=== PATIENT | female | born 1990 | race Caucasian/White ===

== ENCOUNTER 2016-09-11 15:12 | Emergency (ER) | payer MEDICAID ==
[~2016-09-11] VITALS: Ht 162.6 cm; Wt 68.0 kg
[~2016-09-11 15:12] MED LIST: CLON1TAB PO; FLUO20CA19 PO
[2016-09-11] MEDS ORDERED: EPINEPHRINE 1 MG/ML, 1ML ONE (17:50)
[2016-09-11] MEDS ORDERED: DIPHENHYDRAMINE 25 MG CAPSULE ONE (17:50)
[2016-09-11 20:14] VITALS: BP 90/45
== END 2016-09-11 20:16 | disposition home or self-care (01) ==
LOC: ED 19:11
DX: F10.120 Alcohol abuse with intoxication, uncomplicated (principal); F32.9 Major depressive disorder, single episode, unspecified
CPT/HCPCS: 99283

== ENCOUNTER 2016-10-22 07:51 | Inpatient (IN) | payer MEDICAID, OTHER ==
[~2016-10-22] VITALS: Ht 162.6 cm; Wt 62.8 kg
[2016-10-22 09:18] LABS: ASPARTATE AMINO TRANSFERASE 15 U/L (15-37); BLOOD UREA NITROGEN 7 mg/dL (7-18)
[2016-10-22 09:23] LABS: ACETAMINOPHEN 20 mcg/mL (10-30)
[2016-10-22 09:26] LABS: DAU SCREEN DISCLAIMER
[2016-10-22 10:13] LABS: PATH.CAST-FLAG NOT PRESENT; SPERM-FLAG NOT PRESENT; SRC-FLAG NOT PRESENT; XTAL-FLAG NOT PRESENT; YLC-FLAG NOT PRESENT
[2016-10-22] MEDS ORDERED: DEXTROSE 5% IV ONE ×3 (10:30→17:00)
[2016-10-22] MEDS ORDERED: ACETYLCYSTEINE IV ONE ×3 (10:30→17:00)
[2016-10-22] MEDS ORDERED: SODIUM CHLORIDE FLUSH 10ML SYR IVF PRN (11:30)
[2016-10-22] MEDS ORDERED: ACETYLCYSTEINE 3,200 MG in DEXTROSE 5% 500 ML IV ONE (13:00)
[2016-10-22] MEDS ORDERED: SODIUM CHLORIDE 0.9% 1,000 ML IV SCH (13:42)
[2016-10-22] MEDS ORDERED: ONDANSETRON 2MG/ML, 2ML IVPush PRN (14:00)
[2016-10-22] MEDS ORDERED: DOCUSATE 100 MG CAPSULE PO PRN (14:00)
[2016-10-22] MEDS ORDERED: ONDANSETRON ODT 4 MG PO PRN (14:00)
[2016-10-22 14:12] LABS: ACETAMINOPHEN < 2 mcg/mL (10-30); ASPARTATE AMINO TRANSFERASE 15 U/L (15-37)
[2016-10-22 17:40] VITALS: BP 117/80
[2016-10-22 19:53] VITALS: BP 121/77
[2016-10-22 20:48] VITALS: BP 117/80
[2016-10-22] MEDS: ENOXAPARIN 40 MG/0.4 ML SQ SCH (23:02)
[2016-10-23 00:49] VITALS: BP 102/66
[2016-10-23 05:38] LABS: ASPARTATE AMINO TRANSFERASE 11 U/L (15-37); BLOOD UREA NITROGEN 9 mg/dL (7-18)
[2016-10-23 05:40] LABS: ACETAMINOPHEN < 2 mcg/mL (10-30)
[2016-10-23 06:54] VITALS: BP 103/67
[2016-10-23 13:31] VITALS: BP 106/67
[2016-10-23] MEDS: ENOXAPARIN 40 MG/0.4 ML SQ SCH (14:00)
[2016-10-23] MEDS: SERTRALINE 50MG TABLET PO SCH (16:14)
[2016-10-23 19:37] VITALS: BP 110/71
[2016-10-24 08:00] VITALS: BP 106/72
[2016-10-24] MEDS ORDERED: ARIPIPRAZOLE 2 MG TABLET PO SCH (09:00)
[2016-10-24] MEDS: SERTRALINE 50MG TABLET PO SCH (09:19)
[2016-10-24] MEDS ORDERED: SERT50TA5 PO (10:57)
[2016-10-24] MEDS ORDERED: ARIP2TAB PO (10:57)
[2016-10-25] MEDS ORDERED: SERTRALINE 50MG TABLET PO SCH (09:00)
== END 2016-10-24 12:00 | disposition home or self-care (01) | DRG 918 ==
LOC: ED 08:10 → EDIP 11:25 → 3NE 17:43 → 3E 10-23 18:45
PROVIDERS: ADMIT Internal Medicine; ATTEND Internal Medicine
DX: T39.1X1A Poisoning by 4-Aminophenol derivatives, accidental (unintentional), initial encounter (principal); E87.2 Acidosis; F41.9 Anxiety disorder, unspecified; F32.9 Major depressive disorder, single episode, unspecified; F40.01 Agoraphobia with panic disorder; G47.10 Hypersomnia, unspecified; F10.129 Alcohol abuse with intoxication, unspecified; G47.00 Insomnia, unspecified; J44.9 Chronic obstructive pulmonary disease, unspecified; Z79.4 Long term (current) use of insulin; Z81.8 Family history of other mental and behavioral disorders; Z59.0 Homelessness; Y92.89 Other specified places as the place of occurrence of the external cause; Z71.41 Alcohol abuse counseling and surveillance of alcoholic; Z88.8 Allergy status to other drugs, medicaments and biological substances; Z82.5 Family history of asthma and other chronic lower respiratory diseases; Z83.3 Family history of diabetes mellitus; Z81.1 Family history of alcohol abuse and dependence; Z91.5 Personal history of self-harm
CPT/HCPCS: 36415; 80053; 80076; 80307; 80329; 81001; 84703; 85025; 85610; 87086; 96361; 96365; J0132; J7060; J7070; G0378; G0480

== ENCOUNTER 2017-02-06 18:16 | Emergency (ER) | payer MEDICAID, OTHER ==
[~2017-02-06] VITALS: Ht 162.6 cm; Wt 65.3 kg
[~2017-02-06 18:16] MED LIST changes: +ARIP2TAB2 PO; +SERT50TA5 PO
[2017-02-06] MEDS ORDERED: SODIUM CHLORIDE FLUSH 10ML SYR IVF ONE (19:00)
[2017-02-06] MEDS ORDERED: THIAMINE 100MG TABLET PO ONE (19:00)
[2017-02-06] MEDS ORDERED: ONDANSETRON 2MG/ML, 2ML IVPush ONE (19:00)
[2017-02-06] MEDS ORDERED: FOLIC ACID 1 MG TABLET PO ONE (19:00)
[2017-02-06] MEDS ORDERED: SODIUM CHLORIDE 0.9% 1,000ML IVBOLUS ONE (19:00)
[2017-02-06] MEDS ORDERED: LORazepam 2 MG/ML, 1ML IVPush ONE (19:00)
[2017-02-06] MEDS ORDERED: ONDANSETRON 2MG/ML, 2ML ONE (19:15)
[2017-02-06] MEDS ORDERED: LORazepam 2 MG/ML, 1ML ONE (19:16)
[2017-02-06] MEDS ORDERED: THIAMINE 100MG TABLET ONE (19:29)
[2017-02-06 19:30] LABS: HCG UR LOT HCG7030192
[2017-02-06 19:31] VITALS: BP 122/84
[2017-02-06 19:37] LABS: HEMATOCRIT 40.9 % (34.6-47.8); HEMOGLOBIN 13.5 g/dL (11.7-16.4)
[2017-02-06 19:38] LABS: HCG UR OBC PASS
[2017-02-06 19:49] LABS: BLOOD UREA NITROGEN 10 mg/dL (7-18)
[2017-02-06 19:57] LABS: ASPARTATE AMINO TRANSFERASE 29 U/L (15-37)
== END 2017-02-06 20:49 | disposition home or self-care (01) ==
LOC: ED 20:39
DX: F10.20 Alcohol dependence, uncomplicated (principal); F32.9 Major depressive disorder, single episode, unspecified; F41.9 Anxiety disorder, unspecified
CPT/HCPCS: 36415; 80053; 80307; 81025; 85025; 96361; 96374; 96375; 99285; J2060; J2405; J7030; G0479

== ENCOUNTER 2017-03-16 15:25 | Emergency (ER) | payer MEDICAID ==
[~2017-03-16] VITALS: Ht 162.6 cm; Wt 64.0 kg
[2017-03-16 15:56] VITALS: BP 102/70
== END 2017-03-16 18:52 | disposition left against medical advice (07) ==
LOC: ED 18:46
DX: F10.120 Alcohol abuse with intoxication, uncomplicated (principal)
CPT/HCPCS: 99283

== ENCOUNTER 2017-05-19 01:27 | Inpatient (IN) | payer MEDICAID ==
[~2017-05-19] VITALS: Ht 162.6 cm; Wt 62.4 kg
[2017-05-19 02:51] LABS: BASOPHILS # (AUTO) 0.03 x10^3/uL (0-0.1); BASOPHILS % (AUTO) 1 % (0-1); EOSINOPHILS # (AUTO) 0.03 x10^3/uL (0-0.4); EOSINOPHILS % (AUTO) 1 % (1-7); LYMPHOCYTES # (AUTO) 2.27 x10^3/uL (1-3.4); LYMPHOCYTES % (AUTO) 51 % (22-44); MD NO; MEAN CORPUSCULAR HGB CONC 32.8 g/dL (32.4-35.8); MEAN CORPUSCULAR VOLUME 85.3 fL (80-100); MEAN PLATELET VOLUME 8.9 fL (7.4-10.4); MONOCYTES # (AUTO) 0.24 x10^3/uL (0.2-0.8); MONOCYTES % (AUTO) 5 % (2-9); NEUTROPHILS # (AUTO) 1.86 x10^3/uL (1.8-6.8); NEUTROPHILS % (AUTO) 42 % (42-75); PLATELET COUNT 261 x10^3/uL (130-400); RED BLOOD COUNT 4.18 x10^6/uL (3.82-5.3); RED CELL DISTRIBUTION WIDTH 18.9 % (9.6-15.2)
[2017-05-19 03:04] LABS: ALANINE AMINOTRANSFERASE 14 U/L (12-78); ALBUMIN 3.5 g/dL (3.4-5.0); ANION GAP 9 mmol/L (5-15); CALCIUM 7.9 mg/dL (8.5-10.1); CHLORIDE 115 mmol/L (98-107)
[2017-05-19] MEDS ORDERED: ARIP5TAB13 PO (03:11)
[2017-05-19] MEDS ORDERED: FLUO20CA19 PO (03:11)
[2017-05-19 03:15] LABS: ALKALINE PHOSPHATASE 41 U/L (45-117); BILIRUBIN,TOTAL 0.2 mg/dL (0.2-1.0); CREATININE 0.65 mg/dL (0.55-1.02); TOTAL PROTEIN 6.9 g/dL (6.4-8.2)
[2017-05-19 03:29] LABS: ACETAMINOPHEN < 2 mcg/mL (10-30); SALICYLATE LEVEL < 1.7 mg/dL (2.8-20.0)
[2017-05-19 03:33] LABS: AMPHETAMINE SCREEN, URINE Negative (Negative); BARBITURATE SCREEN, URINE Negative (Negative); BENZODIAZEPINE SCREEN, URINE Negative (Negative); CANNABINOID SCREEN, URINE Negative (Negative); COCAINE SCREEN, URINE Negative (Negative); METHADONE SCREEN, URINE Negative (Negative); OPIATE SCREEN, URINE Negative (Negative)
[2017-05-19] MEDS ORDERED: DOCUSATE 100 MG CAPSULE PO PRN (05:00)
[2017-05-19] MEDS ORDERED: ONDANSETRON 2MG/ML, 2ML IVPush PRN (05:00)
[2017-05-19] MEDS ORDERED: morphine SULFATE 10 MG/ML, 1ML IVPush PRN (05:00)
[2017-05-19] MEDS ORDERED: POLYETHYLENE GLYCOL 17 GM PACKET PO PRN (05:00)
[2017-05-19] MEDS ORDERED: hydrALAzine 20 MG/ML, 1ML IVPush PRN (05:00)
[2017-05-19] MEDS ORDERED: OXYcodone IR 5MG TABLET PO PRN (05:00)
[2017-05-19 05:46] LABS: FREE T4 (FREE THYROXINE) 0.94 ng/dL (0.76-1.46); THYROID STIMULATING HORMONE 0.813 mIU/L (0.358-3.740)
[2017-05-19] MEDS ORDERED: HEPARIN 5,000 UNITS/ML, 1ML ONE (06:06)
[2017-05-19] MEDS: SODIUM CHLORIDE 0.9% 1,000 ML IV SCH ×2 (06:15→16:23)
[2017-05-19] MEDS: HEPARIN 5,000 UNITS/ML, 1ML SQ SCH ×3 (06:16→21:00)
[2017-05-19 08:26] LABS: MICROSCOPIC NOT IND
[2017-05-19 08:30] LABS: CULTURE INDICATED? NO
[2017-05-19] MEDS: FLUOXETINE HCL 20 MG CAPSULE PO SCH (09:00)
[2017-05-19] MEDS: MULTIVITAMINS/MINERALS TABLET PO SCH (09:00)
[2017-05-19] MEDS ORDERED: FLUOXETINE HCL 20 MG CAPSULE ONE (09:11)
[2017-05-19 12:49] VITALS: BP 96/62
[2017-05-19 14:19] VITALS: BP 110/70
[2017-05-19] MEDS: LORazepam 1MG TABLET PO PRN (17:33)
[2017-05-19 19:40] VITALS: BP 115/77
[2017-05-20 00:24] VITALS: BP 111/75
[2017-05-20] MEDS: HEPARIN 5,000 UNITS/ML, 1ML SQ SCH ×3 (05:00→20:03)
[2017-05-20 05:23] LABS: BASOPHILS # (AUTO) 0.05 x10^3/uL (0-0.1); BASOPHILS % (AUTO) 1 % (0-1); EOSINOPHILS # (AUTO) 0.04 x10^3/uL (0-0.4); EOSINOPHILS % (AUTO) 1 % (1-7); LYMPHOCYTES # (AUTO) 2.19 x10^3/uL (1-3.4); LYMPHOCYTES % (AUTO) 37 % (22-44); MD NO; MEAN CORPUSCULAR HEMOGLOBIN 28.1 pg (27.0-34.8); MEAN CORPUSCULAR HGB CONC 32.9 g/dL (32.4-35.8); MEAN CORPUSCULAR VOLUME 85.4 fL (80-100); MEAN PLATELET VOLUME 9.2 fL (7.4-10.4); MONOCYTES # (AUTO) 0.44 x10^3/uL (0.2-0.8); MONOCYTES % (AUTO) 7 % (2-9); NEUTROPHILS # (AUTO) 3.17 x10^3/uL (1.8-6.8); NEUTROPHILS % (AUTO) 54 % (42-75); PLATELET COUNT 207 x10^3/uL (130-400); RED BLOOD COUNT 3.83 x10^6/uL (3.82-5.3); RED CELL DISTRIBUTION WIDTH 19.3 % (9.6-15.2)
[2017-05-20 05:34] LABS: ALBUMIN 2.9 g/dL (3.4-5.0); ANION GAP 9 mmol/L (5-15); CALCIUM 7.9 mg/dL (8.5-10.1); CHLORIDE 111 mmol/L (98-107)
[2017-05-20 05:40] LABS: ALANINE AMINOTRANSFERASE 12 U/L (12-78); ALKALINE PHOSPHATASE 39 U/L (45-117); BILIRUBIN,TOTAL 0.6 mg/dL (0.2-1.0); CHOL/HDL RATIO 3.1; CHOLESTEROL, TOTAL 185 mg/dL (140-239); CREATININE 0.59 mg/dL (0.55-1.02); HDL CHOL % 32 % (28-40); HDL CHOLESTEROL (DIRECT) 60 mg/dL (40-60); LDL CHOLESTEROL,CALCULATED 94 mg/dL (54-169); LDL/HDL RATIO 1.6 (0.5-3.0); TOTAL PROTEIN 5.7 g/dL (6.4-8.2); TRIGLYCERIDES 153 mg/dL (50-200); VLDL CHOLESTEROL 31 mg/dL (0-25)
[2017-05-20 06:58] VITALS: BP 112/80
[2017-05-20] MEDS: MULTIVITAMINS/MINERALS TABLET PO SCH (08:24)
[2017-05-20] MEDS: FLUOXETINE HCL 20 MG CAPSULE PO SCH (08:24)
[2017-05-20] MEDS: LORazepam 1MG TABLET PO PRN ×2 (08:32→20:03)
[2017-05-20 13:00] VITALS: BP 101/53
[2017-05-20 19:48] VITALS: BP 107/69
[2017-05-21 01:34] VITALS: BP 103/67
[2017-05-21] MEDS: HEPARIN 5,000 UNITS/ML, 1ML SQ SCH ×2 (05:00→12:20)
[2017-05-21 06:33] VITALS: BP 95/59
[2017-05-21] MEDS: MULTIVITAMINS/MINERALS TABLET PO SCH (09:03)
[2017-05-21] MEDS: FLUOXETINE HCL 20 MG CAPSULE PO SCH (09:03)
[2017-05-21 12:14] VITALS: BP 107/59
[2017-05-21] MEDS: LORazepam 1MG TABLET PO PRN (12:22)
[2017-05-21] MEDS ORDERED: MULT-484 PO (15:07)
[2017-05-21] MEDS ORDERED: FLU VACC QS2017-18 (36MOS+) UP/PF 0.5 ML IM-VACC ONE (16:30)
== END 2017-05-21 18:06 | disposition home or self-care (01) | DRG 918 ==
LOC: ED 03:50 → EDIP 04:45 → 4EST 12:28 → 4WST 05-20 17:11
PROVIDERS: ADMIT Internal Medicine; ATTEND Internal Medicine
DX: T43.592A Poisoning by other antipsychotics and neuroleptics, intentional self-harm, initial encounter (principal); F10.229 Alcohol dependence with intoxication, unspecified; F32.9 Major depressive disorder, single episode, unspecified; F40.01 Agoraphobia with panic disorder; Z91.5 Personal history of self-harm; Z83.3 Family history of diabetes mellitus; Y92.89 Other specified places as the place of occurrence of the external cause; Z23 Encounter for immunization
CPT/HCPCS: 36415; 80053; 80061; 80307; 80329; 81003; 83036; 83735; 84439; 84443; 85025; 90686; 93005; 99285; J1644; G0480; J7030

== ENCOUNTER 2018-08-02 05:30 | Day surgery (SDC) | payer MEDICAID ==
[2018-07-30 08:42] LABS: BASOPHILS # (AUTO) 0.02 x10^3/uL (0-0.1); BASOPHILS % (AUTO) 0 % (0-1); EOSINOPHILS # (AUTO) 0.07 x10^3/uL (0-0.4); EOSINOPHILS % (AUTO) 1 % (1-7); LYMPHOCYTES # (AUTO) 1.77 x10^3/uL (1-3.4); LYMPHOCYTES % (AUTO) 36 % (22-44); MD NO; MEAN CORPUSCULAR HEMOGLOBIN 29.8 pg (27.0-34.8); MEAN CORPUSCULAR VOLUME 90.4 fL (80-100); MEAN PLATELET VOLUME 10.6 fL (7.4-10.4); MONOCYTES # (AUTO) 0.29 x10^3/uL (0.2-0.8); MONOCYTES % (AUTO) 6 % (2-9); NEUTROPHILS # (AUTO) 2.74 x10^3/uL (1.8-6.8); NEUTROPHILS % (AUTO) 56 % (42-75); PLATELET COUNT 188 x10^3/uL (130-400); RED BLOOD COUNT 4.16 x10^6/uL (3.82-5.3); RED CELL DISTRIBUTION WIDTH 13.3 % (9.6-15.2)
[2018-07-30 08:50] LABS: PROTHROMBIN TIME 10.5 Seconds (9.6-11.5)
[2018-07-30 08:54] LABS: ALANINE AMINOTRANSFERASE 14 U/L (12-78); ALBUMIN 3.8 g/dL (3.4-5.0); ANION GAP 7 mmol/L (5-15); CALCIUM 8.6 mg/dL (8.5-10.1); CHLORIDE 108 mmol/L (98-107)
[2018-07-30 08:56] LABS: ALKALINE PHOSPHATASE 56 U/L (45-117); BILIRUBIN,TOTAL 0.3 mg/dL (0.2-1.0); CREATININE 0.74 mg/dL (0.55-1.02); TOTAL PROTEIN 7.8 g/dL (6.4-8.2)
[~2018-08-02] VITALS: Ht 160 cm; Wt 64.5 kg
[~2018-08-02 05:30] MED LIST changes: +ARIP10TA33 PO; +ARIP5TAB13 PO; +MULT-484 PO; +PROP10TA16 PO; +SERT50TA28 PO; -SERT50TA5 PO
[2018-08-02] MEDS ORDERED: LACTATED RINGERS 1,000 ML IV SCH (06:15)
[2018-08-02 06:37] VITALS: BP 96/60
[2018-08-02] MEDS ORDERED: FENTANYL PF 250 MCG/5ML ONE (07:15)
[2018-08-02] MEDS ORDERED: EPINEPHRINE 1 MG/ML, 1ML ONE (07:15)
[2018-08-02] MEDS ORDERED: BUPIVACAINE/PF 0.25% ONE (07:15)
[2018-08-02] MEDS ORDERED: MIDAZOLAM 1 MG/ML, 2ML ONE (07:15)
[2018-08-02] MEDS ORDERED: SUCCINYLCHOLINE 20 MG/ML, 10ML ONE (08:04)
[2018-08-02] MEDS ORDERED: PROPOFOL 10 MG/ML, 20ML ONE (08:04)
[2018-08-02] MEDS ORDERED: ROCURONIUM 10MG/ML,5ML ONE (08:04)
[2018-08-02] MEDS ORDERED: DEXAMETHASONE 4 MG/ML, 1ML ONE (08:04)
[2018-08-02] MEDS ORDERED: GLYCOPYRROLATE 0.2MG/1ML, 5ML ONE (08:04)
[2018-08-02] MEDS ORDERED: CEFAZOLIN 1,000 MG ONE (08:04)
[2018-08-02] MEDS ORDERED: ONDANSETRON 2MG/ML, 2ML ONE (08:04)
[2018-08-02] MEDS ORDERED: LABETALOL 5MG/ML, 20ML IV PRN (09:00)
[2018-08-02] MEDS ORDERED: KETOROLAC 30 MG/1 ML IV PRN (09:00)
[2018-08-02] MEDS ORDERED: ONDANSETRON 2MG/ML, 2ML IVPush PRN (09:00)
[2018-08-02] MEDS ORDERED: PROMETHAZINE 25 MG/ML, 1ML IV PRN (09:00)
[2018-08-02] MEDS ORDERED: HYDROmorphone 1 MG/ML, 1ML INJ IV PRN (09:00)
[2018-08-02] MEDS ORDERED: hydrALAzine 20 MG/ML, 1ML IV PRN (09:00)
[2018-08-02] MEDS ORDERED: METOCLOPRAMIDE 5 MG/ML, 2ML IV PRN (09:00)
[2018-08-02] MEDS ORDERED: MEPERIDINE/PF 25MG/0.5ML IVPush PRN (09:00)
[2018-08-02] MEDS ORDERED: ALBUTEROL SULFATE 2.5 MG/3 ML NPPB PRN (09:00)
[2018-08-02] MEDS ORDERED: HEPARIN 1,000 UNITS/ML, 10ML ONE (09:15)
[2018-08-02] MEDS ORDERED: KETOROLAC 30 MG/1 ML ONE (10:04)
[2018-08-02] MEDS ORDERED: FENTANYL PF 100 MCG/2ML ONE (10:04)
[2018-08-02] MEDS ORDERED: OXYcodone 5 MG/5 ML ORAL.SOL UDC ONE (10:05)
[2018-08-02] MEDS: OXYcodone 5 MG/5 ML ORAL.SOL UDC PO PRN ×2 (10:08→10:30)
[2018-08-02] MEDS: FENTANYL PF 100 MCG/2ML IV PRN ×2 (10:09→10:21)
== END 2018-08-02 14:20 | disposition home or self-care (01) ==
LOC: OUT 05:30
PROVIDERS: ATTEND Specialist
DX: N93.8 Other specified abnormal uterine and vaginal bleeding (principal); N84.1 Polyp of cervix uteri; F32.9 Major depressive disorder, single episode, unspecified; F17.210 Nicotine dependence, cigarettes, uncomplicated; Z79.01 Long term (current) use of anticoagulants
CPT/HCPCS: 36415; 58120; 58661; 80053; 81025; 82105; 83615; 85025; 85610; 85730; 86850; 86900; 86923; 88112; 88304; 88305; J0171; J0330; J0690; J1100; J1644; J1885; J2250; J2405; J2704; J3010; J3490; J7120